=== PATIENT | female | born 1955 | race Caucasian/White ===

== ENCOUNTER → 2017-09-04 | Outpatient (CLI) | payer OTHER ==
--- NOTE | 2017-09-04 11:06 | MM ---
Reason for exam: additional evaluation requested from prior study. Last mammogram was performed 1 year ago. History: Patient is postmenopausal. Family history of premenopausal breast cancer in sister at age 50. Benign excisional biopsy of the left breast, January 19, 1998. Took unspecified hormones for 7 years. Physical Findings: Nurse did not find any significant physical abnormalities on exam. MG Diagnostic Mammo w CAD FIOR Bilateral CC and MLO view(s) were taken. Prior study comparison: September 06, 2016, left breast MG work up mamm w CAD LT. September 03, 2016, bilateral MG screening mammo w CAD. There is chronic nodularity in the left breast. No significant new findings when compared with previous films. These results were verbally communicated with the patient and result sheet given to the patient on 09/04/17. ASSESSMENT: Negative, BI-RAD 1 RECOMMENDATION: Routine screening mammogram of both breasts in 1 year.
== END | disposition home or self-care (01) ==
LOC: RADMAMWWP 09:55
PROVIDERS: ATTEND Family Medicine
DX: R92.2 Inconclusive mammogram (principal)

== ENCOUNTER → 2018-11-10 | Outpatient (CLI) | payer OTHER ==
--- NOTE | 2018-11-10 16:41 | BD ---
EXAMINATION TYPE: Axial Bone Density DATE OF EXAM: 11/10/2018 COMPARISON: 09.03.2016 CLINICAL HISTORY: 62 YR OLD FEMALE....ICD-10 CODE: M89.9 DISORDER OF BONE Height: 63.5 Weight: 165 FRAX RISK QUESTIONS: Secondary Osteoporosis: YES 3. Menopause before 45: YES, AT 36 RISK FACTORS HISTORY OF: Family History of Osteoporosis: YES, HER MOTHER, NO HIP FX Active: YES Postmenopausal woman: YES, AT 36 YRS OLD MEDICATIONS: Osteoporosis Medications: YES, EVISTA X20 YRS Additional Medications: CRESTOR, VIT D Additional History: NOTHING ADDITIONAL TO ADD HERE EXAM MEASUREMENTS: Bone mineral densitometry was performed using the [employer] System. Bone mineral density as measured about the Lumbar spine is: ----- L1-L4(G/cm2): 1.459 T Score Values are as follows: ----- L1: 0.8 ----- L2: 1.3 ----- L3: 3.5 ----- L4: 3.2 ----- L1-L4: 2.3 Bone mineral density has: Increased 8.9% since study of: 09.03.2016 Bone mineral density about the R hip (g/cm2): 1.206 Bone mineral density about the L hip (g/cm2): 1.251 T Score values are as follows: -----R Neck: 1.8 -----L Neck: 1.8 -----R Total: 1.6 -----L Total: 1.9 Bone mineral density has: Decreased -1.2% since study of: 09.03.2016 FRAX%s: THERE IS A 5.0% CHANCE FOR A MAJOR OSTEOPOROTIC FX AND A 0.0% FOR HIP....PROBABILITY OF FX IN 10 YRS TIME IMPRESSION: Normal (Values between +1 and -1 indicate normal bone mass). Consider repeating this study in 5 year s or sooner if there is some new clinical indication. NOTE: T-SCORE=SD OF THE YOUNG ADULT MEAN.
--- NOTE | 2018-11-12 09:56 | MM ---
Reason for exam: screening (asymptomatic). Last mammogram was performed 1 year and 2 months ago. History: Patient is postmenopausal. Family history of premenopausal breast cancer in sister at age 50. Benign excisional biopsy of the left breast, January 19, 1998. Took unspecified hormones for 7 years. Physical Findings: A clinical breast exam by your physician is recommended on an annual basis and results should be correlated with mammographic findings. MG 3D Screening Mammo W/Cad Bilateral CC and MLO view(s) were taken. Prior study comparison: September 04, 2017, bilateral MG diagnostic mammo w CAD FIOR. September 06, 2016, left breast MG work up mamm w CAD LT. There are scattered fibroglandular densities. There is chronic nodularity in the left breast. No significant changes when compared with prior studies. ASSESSMENT: Benign, BI-RAD 2 RECOMMENDATION: Routine screening mammogram of both breasts in 1 year.
== END ==
LOC: RADMAMWWP 12:51
PROVIDERS: ATTEND Family Medicine
DX: Z12.31 Encounter for screening mammogram for malignant neoplasm of breast (principal); M89.9 Disorder of bone, unspecified; Z80.3 Family history of malignant neoplasm of breast
CPT/HCPCS: 77063; 77067; 77080

== ENCOUNTER 2019-10-27 07:57 | Day surgery (SDC) | payer MEDICARE, OTHER ==
[2019-10-25 15:53] VITALS: BMI 26.9
[~2019-10-27 07:57] MED LIST: LACTATED RINGERS 1,000 ML IV SCH; LIDOCAINE 1% 20 ML VIAL (10MG/ML) FOR IV START INTRADERMA PRN
[2019-10-27 08:36] VITALS: TEMP 97.9
[2019-10-27] MEDS ORDERED: LIDOCAINE 1% 20 ML VIAL (10MG/ML) FOR IV START INTRADERMA ONE (08:43)
[2019-10-27] MEDS ORDERED: LIDOCAINE 1% INJ 10MG/ML (20 ML MDV) ONE (08:51)
[2019-10-27] MEDS ORDERED: PROPOFOL 10 MG/ML 20 ML VIAL IV ONE (08:51)
--- NOTE | 2019-10-27 09:04 | P.PCN ---
Date of Procedure: 10/27/19 Procedure(s) Performed: BRIEF HISTORY: Patient is a 63-year-old, pleasant, female, scheduled for an upper endoscopy as a part of evaluation of progressive dysphagia to solids for the last 2 months duration. She has history of esophageal stricture for which she and was cleared dilation and the last one was in 2 years ago.. PROCEDURE PERFORMED: Esophagogastroduodenoscopy with biopsy and dilation. PREOPERATIVE DIAGNOSIS: Progressive dysphagia to solids of 2 months duration. IV sedation per anesthesia. PROCEDURE: After informed consent was obtained, the patient was brought into the endoscopy unit. IV sedation was administered by Anesthesia under continuous monitoring. Initially the Olympus GIF-140 video endoscope was inserted into the mouth. Esophagus intubated without any difficulty. It was gradually advanced into the stomach and duodenum and carefully examined. The bulb and the second part of the duodenum appeared normal. The scope at this time was withdrawn to the stomach, adequately insufflated with air, and upon careful examination, mucosa of the antrum had mild gastritis and biopsies were done from this area. The, body, cardia and the fundus appeared normal. The scope was then withdrawn into the esophagus. The GE junction was located at 34 cm from the incisors. There was a small hiatal hernia noted. There was early distal esophageal stricture identified and this was dilated using 12-15 mm balloon in a sequential fashion for total of 90 seconds. There were linear erosions and one superficial ulceration the GE junction consistent with LA grade C reflux esophagitis. The rest of the esophagus appeared normal. There were no erosions or ulcerations seen and the patient tolerated the procedure well. IMPRESSION: 1. Distal esophageal stricture status post balloon dilation using 12-15 mm TTS balloon as described above. 2. Linear erosions and one superficial ulceration at the GE junction consistent with LA grade C reflux esophagitis 3. Small hiatal hernia 4. Mild antral gastritis. RECOMMENDATIONS: The findings of this examination were discussed with the patie nt is a family. She was advised to be on a clear liquid diet for lunch today. She'll be started on Prilosec 20 mg twice daily for 2 months and then she was advised to decrease to once daily and follow antireflux measures. She'll be seen in office in 3 months.
[2019-10-27 09:24] VITALS: BP 117/76; PULSE 68; RESP 16
== END 2019-10-27 09:44 | disposition home or self-care (01) ==
LOC: ORWHC2ENDO 07:57
PROVIDERS: ATTEND Internal Medicine Gastroenterology
DX: K29.50 Unspecified chronic gastritis without bleeding (principal); K22.2 Esophageal obstruction; K25.9 Gastric ulcer, unspecified as acute or chronic, without hemorrhage or perforation; K44.9 Diaphragmatic hernia without obstruction or gangrene; E78.5 Hyperlipidemia, unspecified; K21.9 Gastro-esophageal reflux disease without esophagitis; Z88.2 Allergy status to sulfonamides; Z79.810 Long term (current) use of selective estrogen receptor modulators (SERMs); Z79.899 Other long term (current) drug therapy; Z90.49 Acquired absence of other specified parts of digestive tract; Z90.89 Acquired absence of other organs; Z90.710 Acquired absence of both cervix and uterus; Z87.19 Personal history of other diseases of the digestive system
CPT/HCPCS: 88305; 43239; 43249; J2001; J2704; C1726

== ENCOUNTER → 2020-05-11 | Outpatient (CLI) | payer MEDICARE ==
--- NOTE | 2020-05-15 11:39 | MM ---
Reason for exam: screening (asymptomatic). Last mammogram was performed 1 year and 6 months ago. History: Patient is postmenopausal. Family history of premenopausal breast cancer in sister at age 50. Benign excisional biopsy of the left breast, January 19, 1998. Took unspecified hormones for 7 years. Physical Findings: A clinical breast exam by your physician is recommended on an annual basis and results should be correlated with mammographic findings. MG 3D Screening Mammo W/Cad Bilateral CC and MLO view(s) were taken. Prior study comparison: November 10, 2018, bilateral MG 3d screening mammo w/cad. September 04, 2017, bilateral MG diagnostic mammo w CAD FIOR. The breast tissue is heterogeneously dense. This may lower the sensitivity of mammography. Benign appearing calcifications in the left breast. There is chronic nodularity in the left breast. No significant changes when compared with prior studies. ASSESSMENT: Benign, BI-RAD 2 RECOMMENDATION: Routine screening mammogram of both breasts in 1 year.
== END | disposition home or self-care (01) ==
LOC: RADMAMWWP 12:35
PROVIDERS: ATTEND Family Medicine
DX: Z12.31 Encounter for screening mammogram for malignant neoplasm of breast (principal)
CPT/HCPCS: 77063; 77067

== ENCOUNTER → 2021-05-21 | Outpatient (CLI) | payer MEDICARE ==
--- NOTE | 2021-05-21 16:53 | BD ---
EXAMINATION TYPE: Axial Bone Density DATE OF EXAM: 05/21/2021 COMPARISON: 11/10/2018 CLINICAL HISTORY: postmenopausal screening Height: 64 Weight: 155.7 FRAX RISK QUESTIONS: Alcohol (3 or more units per day): no Family History (Parent hip fracture): no Glucocorticoids (More than 3mos): no (Ex: prednisone, prednisolone, methylprednisolone, dexamethasone, and hydrocortisone). History of Fracture in Adulthood: no Secondary Osteoporosis: 1. Type 1 Diabetes: no 2. Hyperthyroidism: no 3. Menopause before 45: yes 4. Malnutrition: no 5. Chronic liver disease: no Rheumatoid Arthritis: no Current Tobacco Use: no RISK FACTORS HISTORY OF: Surgery to Spine/Hip(right/left)/Wrist (right/left): no Family History of Osteoporosis: yes Active: yes Diet low in dairy products/other sources of calcium: yes Postmenopausal woman: age 36 Lost more than 2 inches in height since high school: no MEDICATIONS: Osteoporosis Medications: evista How Lon years Additional Medications: Additional History: EXAM MEASUREMENTS: Bone mineral densitometry was performed using the [employer] System. Bone mineral density as measured about the Lumbar spine is: ----- L1-L4(G/cm2): 1.332 T Score Values are as follows: ----- L2: 0.4 ----- L3: 1.9 ----- L4: 2.2 ----- L1-L4: 1.3 Bone mineral density has: decreased -8.9 % since study of: 11.10.2018 Bone mineral density about the R hip (g/cm2): 1.232 Bone mineral density about the L hip (g/cm2): 1.217 T Score values are as follows: -----R Neck: 1.4 -----L Neck: 1.3 -----R Total: 1.4 -----L Total: 1.6 Bone mineral density has: decreased -2.2 % since study of: 11.10.2018 IMPRESSION: Normal (Values between +1 and -1 indicate normal bone mass). Consider repeating this study in 5 year s or sooner if there is some new clinical indication. NOTE: T-SCORE=SD OF THE YOUNG ADULT MEAN.
--- NOTE | 2021-05-22 12:02 | MM ---
Reason for exam: screening (asymptomatic). Last mammogram was performed 1 year ago. History: Patient is postmenopausal. Family history of premenopausal breast cancer in sister at age 50. Benign excisional biopsy of the left breast, January 19, 1998. Took unspecified hormones for 7 years. Physical Findings: A clinical breast exam by your physician is recommended on an annual basis and results should be correlated with mammographic findings. MG 3D Screening Mammo W/Cad Bilateral CC and MLO view(s) were taken. Prior study comparison: May 11, 2020, bilateral MG 3d screening mammo w/cad. November 10, 2018, bilateral MG 3d screening mammo w/cad. There are scattered fibroglandular densities. There are benign appearing round calcifications in the right breast. There is chronic nodularity in the left breast. There is no discrete abnormality. ASSESSMENT: Benign, BI-RAD 2 RECOMMENDATION: Routine screening mammogram of both breasts in 1 year.
== END | disposition home or self-care (01) ==
LOC: RADMAMWWP 11:00
PROVIDERS: ATTEND Family Medicine
DX: Z12.31 Encounter for screening mammogram for malignant neoplasm of breast (principal); Z78.0 Asymptomatic menopausal state; Z80.3 Family history of malignant neoplasm of breast; Z13.820 Encounter for screening for osteoporosis
CPT/HCPCS: 77063; 77067; 77080

== ENCOUNTER → 2023-05-22 | Outpatient (CLI) | payer MEDICARE ==
--- NOTE | 2023-05-22 09:45 | BD ---
EXAMINATION TYPE: Axial Bone Density DATE OF EXAM: 05/22/2023 CLINICAL HISTORY: 67 years old Female. ICD-10 CODE: M85.852 disorder bone density left Height: 63.6 Weight: 152 FRAX RISK QUESTIONS: Family History (Parent hip fracture): yes Secondary Osteoporosis: yes 3. Menopause before 45: yes RISK FACTORS HISTORY OF: Family History of Osteoporosis: yes Postmenopausal woman: at 36 Hyperparathyroidism: no Adrenal Insufficiency: no MEDICATIONS: Prednisone or other steroids: on and off for poison angelia and illnesses Additional Medications: statin for cholesterol, vit d Additional History: cholesterol, early menopause, EXAM MEASUREMENTS: Bone mineral densitometry was performed using the [employer] System. Bone mineral density as measured about the Lumbar spine is: ----- L1-L4(G/cm2): 1.353 T Score Values are as follows: ----- L1: 0.5 ----- L2: 0.4 ----- L3: 1.5 ----- L4: 2.9 ----- L1-L4: 1.4 Z Score Values are as follows: ----- L1: 2.0 ----- L2: 1.9 ----- L3: 3.0 ----- L4: 4.4 ----- L1-L4: 3.0 Bone mineral density has: Increased 1.6% since study of: 05.21.2021 Bone mineral density about the R hip (g/cm2): 1.124 Bone mineral density about the L hip (g/cm2): 1.205 T Score values are as follows: -----R Neck: 1.1 -----L Neck: 1.1 -----R Total: 0.9 -----L Total: 1.6 Z Score values are as follows: -----R Neck: 2.7 -----L Neck: 2.7 -----R Total: 2.3 -----L Total: 2.9 Bone mineral density has: Decreased -3.1% since study of: 05.21.2021 FRAX%s: The graph provided illustrates a 5.7% chance for a major osteoporotic fx and a 0.1% chance fo r the hips probability for fx in 10 years time. IMPRESSION: Normal (Values between +1 and -1 indicate normal bone mass). Consider repeating this study in 5 year s or sooner if there is some new clinical indication. NOTE: T-SCORE=SD OF THE YOUNG ADULT MEAN.
--- NOTE | 2023-05-23 10:24 | MM ---
Reason for Exam: Screening (asymptomatic). Last mammogram was performed 2 year(s) and 0 month(s) ago. Patient History: Menarche at age 11. First Full-Term at age 18. Left ovary removed at age 36. Right ovary removed at age 36. Hysterectomy at age 36. Postmenopausal. Patient has history of breast feeding. Patient used Unspecified Hormone for 7 years. 01/19/1998, Benign Excisional Biopsy on the left side. Sister had breast cancer, age 50. Risk Values: Shanice 5 year model risk: 3.9%. NCI Lifetime model risk: 11.6%. Prior Study Comparison: 11/10/2018 Bilateral Screening Mammogram, [facility]. 05/11/2020 Bilateral Screening Mammogram, [facility]. 05/21/2021 Bilateral Screening Mammogram, [facility]. Tissue Density: The breast tissue is heterogeneously dense. This may lower the sensitivity of mammography. Findings: Analyzed By CAD. There is no suspicious group of microcalcifications or new suspicious mass in either breast. Overall Assessment: Benign, BI-RAD 2 Management: Screening Mammogram of both breasts in 1 year. . Patient should continue monthly self-breast exams. A clinical breast exam by your physician is recommended on an annual basis. This exam should not preclude additional follow-up of suspicious palpable abnormalities. Note on Shanice scores and lifetime risk: 1. A Shanice score greater than 3% is considered moderate risk. If this is the case, consider specialist referral to assess eligibility for a risk reducing agent. 2. If overall lifetime risk for the development of breast cancer is 20% or higher, the patient may qualify for future screening with alternating mammogram and breast MRI. Electronically signed and approved by: Jake Hill M.D. Radiologis
== END | disposition home or self-care (01) ==
LOC: RADMAMWWP 08:27
PROVIDERS: ATTEND Internal Medicine
DX: Z12.31 Encounter for screening mammogram for malignant neoplasm of breast (principal); M85.852 Other specified disorders of bone density and structure, left thigh; Z78.0 Asymptomatic menopausal state; Z80.3 Family history of malignant neoplasm of breast
CPT/HCPCS: 77063; 77067; 77080

== ENCOUNTER → 2023-11-18 | Outpatient (CLI) | payer MEDICARE ==
--- NOTE | 2023-11-18 09:52 | XR ---
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 FINDINGS: The osseous structures show normal alignment without evidence of an acute fracture. There are osteoph ytes noted throughout the cervical spine on the anterior and lateral aspects of the vertebral bodies. The intervertebral disk spaces are narrowed at multiple levels. Pedicles are intact. Soft tissues a re within normal limits. The odontoid appears intact. IMPRESSION: 1. No fracture or dislocation. 2. Mild to moderate degenerative disc disease changes of the cervical spine.
== END | disposition home or self-care (01) ==
LOC: RADXRWHC 08:49
PROVIDERS: ATTEND Internal Medicine
DX: M47.812 Spondylosis without myelopathy or radiculopathy, cervical region (principal); M50.30 Other cervical disc degeneration, unspecified cervical region
CPT/HCPCS: 72052

== ENCOUNTER → 2024-06-15 | Outpatient (CLI) | payer MEDICARE ==
--- NOTE | 2024-06-16 17:15 | MM ---
Reason for Exam: Screening (asymptomatic). Last mammogram was performed 1 year(s) and 1 month(s) ago. Patient History: Menarche at age 11. First Full-Term at age 18. Left ovary removed at age 36. Right ovary removed at age 36. Hysterectomy at age 36. Postmenopausal. Patient has history of breast feeding. Patient used Unspecified Hormone for 7 years. 01/19/1998, Benign Excisional Biopsy on the left side. Sister had breast cancer, age 50. Risk Values: Shanice 5 year model risk: 3.9%. NCI Lifetime model risk: 11.1%. Prior Study Comparison: 05/11/2020 Bilateral Screening Mammogram, [facility]. 05/21/2021 Bilateral Screening Mammogram, [facility]. 05/22/2023 Bilateral MG 3D screening mammo w/cad, [facility]. Tissue Density: There are scattered areas of fibroglandular density. Findings: Analyzed By CAD. Chronic nodularity on the left. There is no suspicious group of microcalcifications or new suspicious mass in either breast. Overall Assessment: Benign, BI-RAD 2 Management: Screening Mammogram of both breasts in 1 year. See note below in regards to patient's increased 5 year Shanice score. Patient should continue monthly self-breast exams. A clinical breast exam by your physician is recommended on an annual basis. This exam should not preclude additional follow-up of suspicious palpable abnormalities. Note on Shanice scores and lifetime risk: 1. A Shanice score greater than 3% is considered moderate risk. If this is the case, consider specialist referral to assess eligibility for a risk reducing agent. 2. If overall lifetime risk for the development of breast cancer is 20% or higher, the patient may qualify for future screening with alternating mammogram and breast MRI. Electronically signed and approved by: Imani Martinez M.D. Radiologist
== END | disposition home or self-care (01) ==
LOC: RADMAMWWP 09:38
PROVIDERS: ATTEND Internal Medicine
DX: Z12.31 Encounter for screening mammogram for malignant neoplasm of breast
CPT/HCPCS: 77063; 77067

== ENCOUNTER → 2024-12-17 | Outpatient (CLI) | payer MEDICARE ==
--- NOTE | 2024-12-17 20:26 | CA ---
Transthoracic Echo Report Name: Jessica Herrera Age: 68 Gender: F : 1955 Exam Date: 12/17/2024 11:07 Exam Location: [facility] Ht (in): 64 Wt (lb): 140 Ordering Physician: Cheryle Willson MD Attending/Referring Phys: Cheryle Willson MD [employer] Vu Kyle RDCS Procedure CPT: Indications: I34.0 NONRHEUMATIC MITRAL (VALVE) INSUFFICIENCY Cardiac Hx: Technical Quality: Good Contrast 1: Total Dose (mL): Contrast 2: Total Dose (mL): MEASUREMENTS (Male / Female) Normal Values 2D ECHO LV Diastolic Diameter PLAX 4.9 cm 4.2 - 5.9 / 3.9 - 5.3 cm LV Systolic Diameter PLAX 3.3 cm IVS Diastolic Thickness 0.7 cm 0.6 - 1.0 / 0.6 - 0.9 cm LVPW Diastolic Thickness 0.7 cm 0.6 - 1.0 / 0.6 - 0.9 cm LV Relative Wall Thickness 0.3 RV Internal Dim ED PLAX 2.6 cm LVOT Diameter 2.0 cm LA Systolic Diameter LX 2.6 cm 3.0 - 4.0 / 2.7 - 3.8 cm LV Diastolic Volume MOD BP 89.7 cm??? 67 - 155 / 56 - 104 cm??? LV Systolic Volume MOD BP 41.1 cm??? 22 - 58 / 19 - 49 cm??? LV Ejection Fraction MOD BP 54.1 % >= 55 % LV Cardiac Index MOD BP 1854.3 cm???/min???m??? LV Diastolic Volume MOD 4C 87.5 cm??? LV Systolic Volume MOD 4C 41.5 cm??? LV Ejection Fraction MOD 4C 52.5 % LV Cardiac Index MOD 4C 1755.9 cm???/min???m??? LV Diastolic Length 4C 7.4 cm LV Systolic Length 4C 6.1 cm LV Diastolic Volume MOD 2C 87.6 cm??? LV Systolic Volume MOD 2C 38.0 cm??? LV Ejection Fraction MOD 2C 56.6 % LV Cardiac Index MOD 2C 1891.7 cm???/min???m??? LV Diastolic Length 2C 7.8 cm LV Systolic Length 2C 6.6 cm LA Volume 49.7 cm??? 18 - 58 / 22 - 52 cm??? LA Volume Index 29.2 cm???/m??? 16 - 28 cm???/m??? DOPPLER AV Peak Velocity 103.6 cm/s AV Peak Gradient 4.3 mmHg AV Mean Velocity 69.6 cm/s AV Mean Gradient 2.2 mmHg AV Velocity Time Integral 22.6 cm LVOT Peak Velocity 85.3 cm/s LVOT Peak Gradient 2.9 mmHg LVOT Velocity Time Integral 20.4 cm LVOT Stroke Volume 61.9 cm??? LVOT Stroke Volume Index 36.8 ml/m??? LVOT Cardiac Index 2363.7 cm???/min???m??? AV Area Cont Eq vti 2.7 cm??? AV Area Cont Eq pk 2.5 cm??? MV Peak Velocity 58.2 cm/s MV Peak Gradient 1.4 mmHg MV Mean Velocity 31.6 cm/s MV Mean Gradient 0.9 mmHg MV Velocity Time Integral 14.7 cm MV Area PHT 2.9 cm??? Mitral E Point Velocity 81.4 cm/s Mitral A Point Velocity 100.2 cm/s Mitral E to A Ratio 0.8 MV Deceleration Time 253.7 ms TR Peak Velocity 204.8 cm/s TR Peak Gradient 16.8 mmHg FINDINGS Left Ventricle Left ventricular ejection fraction is estimated at 50-55 %.no obvious regional wall motion abnormalities. Left ventricular wall thickness normal. Right Ventricle Normal right ventricular size and function. Right ventricular systolic pressure within normal limits. Right Atrium Normal right atrial size. Left Atrium Mildly increased left atrial volume. Mitral Valve Mitral valve thickened. No mitral stenosis, regurgitation or prolapse. Aortic Valve Thickened aortic valve without stenosis. No aortic valve stenosis or regurgitation. Tricuspid Valve Structurally normal tricuspid valve. No tricuspid stenosis. Trace to mild tricuspid regurgitation. Pulmonic Valve Structurally normal pulmonic valve. No pulmonic stenosis. No pulmonic regurgitation. Pericardium No pericardial effusion. Aorta Normal size aortic root and proximal ascending aorta. CONCLUSIONS Normal LV systolic function No significant valvular abnormalities noted No pericardial effusion Normal pulmonary artery systolic pressure Previewed by: Dr. Brooks Vega MD (Electronically Signed) Final Date: 17 December 2024 20:25
== END | disposition home or self-care (01) ==
LOC: RADECHMAIN 11:02
PROVIDERS: ATTEND Internal Medicine
DX: I34.0 Nonrheumatic mitral (valve) insufficiency (principal); I07.1 Rheumatic tricuspid insufficiency
CPT/HCPCS: 93306

== ENCOUNTER → 2024-12-22 | Outpatient (CLI) | payer MEDICARE ==
--- NOTE | 2024-12-22 14:43 | US ---
EXAMINATION TYPE: US carotid duplex BILAT DATE OF EXAM: 12/22/2024 COMPARISON: NONE CLINICAL INDICATION: Female, 69 years old with history of I34.0 NONRHEUMATIC MITRAL (VALVE) INSUFFICI ENCY; Additional History: .... TECHNIQUE: Grayscale, color Doppler and spectral Doppler evaluation of the bilateral carotid systems and vertebral arteries. Indirect Doppler criteria was utilized. FINDINGS: EXAM MEASUREMENTS: RIGHT: Peak Systolic Velocity (PSV) cm/sec ----- Right CCA: 88.3 ----- Right ICA: 106 ----- Right ECA: 114 ICA/CCA ratio: 1.2 RIGHT: End Diastole cm/sec ----- Right CCA: 24.7 ----- Right ICA: 27.5 ----- Right ECA: 19.5 LEFT: Peak Systolic Velocity (PSV) cm/sec ----- Left CCA: 100 ----- Left ICA: 115 ----- Left ECA: 92.0 ICA/CCA ratio: 1.2 LEFT: End Diastole cm/sec ----- Left CCA: 29.8 ----- Left ICA: 33.9 ----- Left ECA: 17.5 VERTEBRALS (direction of flow): Right Vertebral: Antegrade Left Vertebral: Antegrade Rhythm: Normal PRODUCT SUPPORT SPECIALIST NOTES: Limited exam due to vessel tortuosity No elevated velocities, bilateral plaque or significant stenosis seen, Color Doppler imaging shows patency with blood flow throughout the carotid artery. Spectral waveforms are within normal limits. IMPRESSION: Right: Less than 50% stenosis of the carotid bifurcation. Left: Less than 50% stenosis of the carotid bifurcation. Criteria for Assigning % of Stenosis / Diameter reduction (Estimation based on the indirect measurements of the internal carotid artery velocities (ICA PSV). 1. Normal (no stenosis)=ICA PSV < 125 cm/s: ratio < 2.0: ICA EDV<40 cm/s. 2. Less than 50% stenosis=ICA PSV < 125 cm/s: ratio < 2.0: ICA EDV<40 cm/s. 3. 50 to 69% stenosis=ICA PSV of 125 to 230 cm/s: ration 2.0 ? 4.0: ICA EDV 40-100 cm/s. 4. Greater than 70% stenosis to near occlusion= ICA PSV > 230 cm/s: ratio > 4.0: ICA EDV > 100 cm/s. 5. Near occlusion= ICA PSV velocities may be low or undetectable: variable ratio and ICA EDV. 6. Total occlusion=unable to detect flow. [facility], , 12/22/2024 2:41 PM
== END | disposition home or self-care (01) ==
LOC: RADUSWWP 13:03
PROVIDERS: ATTEND Internal Medicine
DX: I34.0 Nonrheumatic mitral (valve) insufficiency (principal); I65.23 Occlusion and stenosis of bilateral carotid arteries
CPT/HCPCS: 93880

== ENCOUNTER 2025-01-04 10:15 | Day surgery (SDC) | payer MEDICARE ==
[2025-01-03 11:26] VITALS: BMI 24.0
[~2025-01-04 10:15] MED LIST changes: -LACTATED RINGERS 1,000 ML IV SCH; +LIDOCAINE 1% (10MG/ML) FOR IV START INTRADERMA PRN; -LIDOCAINE 1% 20 ML VIAL (10MG/ML) FOR IV START INTRADERMA PRN
[2025-01-04 11:30] VITALS: RESP 16; TEMP 97
[2025-01-04] MEDS: IV FLUID CONTINUATION 1,000 ML IV ONE (11:41)
[2025-01-04] MEDS: LACTATED RINGERS 1,000 ML IV SCH (11:42)
[2025-01-04] MEDS ORDERED: LIDOCAINE 2% (PF) 20 MG/ML 5 ML VIAL ONE (12:27)
[2025-01-04] MEDS ORDERED: PROPOFOL 10 MG/ML 20 ML VIAL IV ONE (12:27)
--- NOTE | 2025-01-04 12:49 | P.PCN ---
Date of Procedure: 01/04/25 Procedure(s) Performed: Brief history: Patient is a pleasant 69-year-old white female scheduled for an elective upper endoscopy as well as colonoscopy as a part of evaluation of GERD and screening for colon cancer Procedure performed: Esophagogastroduodenoscopy with biopsy Colonoscopy with snare polypectomy. Preoperative diagnosis: GERD Screening for colon cancer Anesthesia: MAC Procedure: After informed consent was obtained from the patient was brought into the endoscopy unit and IV sedation was administered by anesthesia under continuous monitoring. Initially upper endoscopy was done. The Olympus GF 160 video endoscope was inserted inserted into the mouth and esophagus intubated without any difficulty and was gradually advanced into the stomach and duodenum and carefully examined. The bulb and second part of the duodenum appeared normal. The scope was then withdrawn into the stomach adequately insufflated with air and upon careful examination the antrum had mild gastritis and biopsies were done from this area. Mucosa of the body, cardia and fundus appeared normal. The scope was then withdrawn into the esophagus. The GE junction was located at 40 cm to the incisors. It appeared regular linear erosions consistent with LA grade B reflux esophagitis. Rest of the esophagus appeared normal. Patient tolerated the procedure well. At this time the patient continued to remain sedation. Initial digital rectal examination was normal. Olympus CF 160 video colonoscope was then inserted into the rectum and gradually advanced to the cecum without any difficulty. Careful examination was performed as the scope was gradually being withdrawn. The prep was excellent. The cecum, ascending colon, transverse colon, descending colon, sigmoid colon and rectum appeared normal. In the distal rectum there was a 6 mm sessile polyp removed by cold snare polypectomy. Retroflexion was performed in the rectum and no lesions were noted. Patient tolerated the procedure well. Impression: 1. Upper endoscopy revealed mild antral gastritis and LA grade B reflux esophagitis 2. Colonoscopy revealed 6 mm distal rectal polyp status post cold snare polypectomy. Recommendations: Findings of this examination were discussed with the patient as well as her family. She was advised to start on Prilosec 20 mg daily and follow antireflux measures. Recommended repeat screening colonoscopy in 5 years based on the biopsy result.
[2025-01-04 13:11] VITALS: BP 106/63; PULSE 65
== END 2025-01-04 14:05 | disposition home or self-care (01) ==
LOC: ORWHC2ENDO 10:15
PROVIDERS: ATTEND Internal Medicine Gastroenterology
DX: Z12.11 Encounter for screening for malignant neoplasm of colon (principal); K21.00 Gastro-esophageal reflux disease with esophagitis, without bleeding; K31.9 Disease of stomach and duodenum, unspecified; K62.1 Rectal polyp; K29.70 Gastritis, unspecified, without bleeding; E78.5 Hyperlipidemia, unspecified; J44.9 Chronic obstructive pulmonary disease, unspecified; Z88.2 Allergy status to sulfonamides; Z79.899 Other long term (current) drug therapy; Z87.11 Personal history of peptic ulcer disease; Z79.51 Long term (current) use of inhaled steroids
CPT/HCPCS: 88305; 45385; 43239; J2704; J2003